=== PATIENT | male | born 1990 | race Two or more races ===

== ENCOUNTER 2023-08-24 17:46 | Emergency (ER) | payer MEDICAID, OTHER ==
[~2023-08-24] VITALS: Ht 185.4 cm; Wt 102.0 kg
[2023-08-24 20:08] VITALS: BP 144/84; PULSE 97; RESP 16; TEMP 98.7; O2SAT 99
[2023-08-24] MEDS ORDERED: IBUP-1456 PO (21:17)
[2023-08-24] MEDS ORDERED: CLIN1CAP70 PO (21:17)
[2023-08-24] MEDS ORDERED: CEPH500C PO (21:17)
[2023-08-24] MEDS: TETANUS-DIPTH-ACEL PERTUSSIS 0.5ML SYR Tdap IM ONE (21:21)
[2023-08-24] MEDS: cefTRIAXone SOD 1,000 MG VL IM ONE (21:21)
== END 2023-08-24 21:32 | disposition home or self-care (01) ==
LOC: ER 17:46
DX: L03.114 Cellulitis of left upper limb (principal); F12.10 Cannabis abuse, uncomplicated; Z90.49 Acquired absence of other specified parts of digestive tract
CPT/HCPCS: 73130; 90471; 90715; 96372; 99284; J0696

== ENCOUNTER 2024-05-05 13:42 | Emergency (ER) | payer SELFPAY ==
[~2024-05-05] VITALS: Ht 185.4 cm; Wt 106.3 kg
[~2024-05-05 13:42] MED LIST: CEPH500C PO; CLIN1CAP70 PO; IBUP-1456 PO
[2024-05-05 14:17] VITALS: BP 128/65; PULSE 88; RESP 16; TEMP 98.2; O2SAT 97
--- NOTE | 2024-05-05 14:57 | DVH ---
ULTRASOUND OF SCROTUM AND CONTENTS. INDICATION: RIGHT SIDED SWELLING COMPARISON: None TECHNIQUE: Multiple real-time grayscale sonographic and color and duplex Doppler images of the scrotu m and its contents were obtained. FINDINGS: The right testicle measures 5.0 x 4.4 x 3.8 cm. The left testicle measures 5.5 x 2.9 x 3.2 cm. Both testicles demonstrate homogeneous echotexture without evidence of focal lesions. The right epididymis measures 3.0 cm. The left epididymis measures 2.0 cm. Right epididymis is hypervascular. Subsequent color and duplex Doppler interrogation of the testes demonstrated symmetric normal vascula r flow to both testicles. No focal areas of hyperemia were seen. Moderate right hydrocele. IMPRESSION: Right epididymis is asymmetrically enlarged and hypervascular suggestive of epididymitis. Moderate right hydrocele.
--- NOTE | 2024-05-05 15:08 | ED.PDOC ---
General HPI Comments A 33 YEAR OLD MALE PRESENTS TO THE ED WITH COMPLAINT OF RIGHT TESTICLE PAIN AND SWELLING. PATIENT STATES HE HAS BEEN EXPERIENCING RIGHT-SIDED TESTICLE PAIN AND SWELLING FOR THE PAST 1 WEEK. PATIENT DENIES DYSURIA, HEMATURIA, PENILE DISCHARGE, FEVER, CHILLS, SHORTNESS OF BREATH, CHEST PAIN, ABDOMINAL PAIN, NAUSEA, VOMITING, HEADACHE, OR OTHER COMPLAINTS. NO OTHER SYMPTOMS OR MODIFYING FACTORS AT THIS TIME. PATIENT IS ALERT, ORIENTED X 4, AND HAS STEADY GAIT. Chief Complaint: Testicle Pain Time Seen by MD: 13:56 Primary Care Provider: BLACK Reviewed notes: Nurses Notes, Medications, Allergies Allergies: Coded Allergies: NO KNOWN ALLERGIES (Unverified , 08/24/23) Home Meds Active Scripts Indomethacin (Indomethacin) 50 Mg Cap, 1 CAP PO TID, #30 CAP Prov:CHARLINE LARA 05/05/24 Doxycycline (Monohydrate) (Doxycycline) 100 Mg Cap, 100 MG PO BID, #20 CAP Prov:CHARLINE LARA 05/05/24 Ibuprofen (Ibuprofen) 800 Mg Tab, 1 TAB PO TID, #30 TAB 0 Refills Prov:NEVAEH MESSER 08/24/23 Cephalexin Monohydrate (Cephalexin) 500 Mg Cap, 1 CAP PO BID for 7 Days, #14 CAP 0 Refills Prov:NEVAEH MESSER 08/24/23 Clindamycin Hcl (Clindamycin Hcl) 300 Mg Cap, 1 CAP PO TID for 7 Days, #21 CAP 0 Refills Prov:NEVAEH MESSER 08/24/23 Information Source: Patient Mode of Arrival: Ambulatory Severity: Moderate Inability to void: None Timing: Days Duration: Since onset, Days Prehospital treatment: None Onset: Spontaneous Symptoms: Other (RIGHT-SIDED TESTICLE SWELLING AND PAIN) History of: None Location: None Location male: R Scrotum Penile discharge: None Modifying factors: None associated signs and symptoms: None Past Medical History PAST MEDICAL HISTORY: Denies Surgical History: Appendectomy Family History Family History: Reviewed,noncontributory to illness Social History Smoker: Non-Smoker Alcohol: Denies ETOH Use Drugs: Marijuana Lives In: Home Constitutional: denies: chills, diaphoresis, fatigue, fever, malaise, sweats, weakness, others EENTM: denies: blurred vision, double vision, ear bleeding, ear discharge, ear drainage, ear pain, ear ringing, eye pain, eye redness, hearing loss, mouth pain, mouth swelling, nasal discharge, nose bleeding, nose congestion, nose pain, photophobia, tearing, throat pain, throat swelling, voice changes, others Respiratory: denies: cough, hemoptysis, orthopnea, SOB at rest, shortness of breath, SOB with excertion, stridor, wheezing, others Cardiovascular: denies: chest pain, dizzy spells, diaphoresis, Dyspnea on exertion, edema, irregular heart beat, left arm pain, lightheadedness, palpitations, PND, syncope, others Gastrointestinal: denies: abdomen distended, abdominal pain, blood streaked bowels, constipated, diarrhea, dysphagia, difficulty swallowing, hematemesis, melena, nausea, poor appetite, poor fluid intake, rectal bleeding, rectal pain, vomiting, others Genitourinary: reports: testicle pain, testicle swelling; denies: burning, dysuria, flank pain, frequency, hematuria, incontinence, penile discharge, penile sore, pain, urgency, others Neurological: denies: dizziness, fainting, headache, left sided numbness, left sided weakness, numbness, paresthesia, pre-existing deficit, right sided numbness, right sided weakness, seizure, speech problems, tingling, tremors, weakness, others Musculoskeletal: denies: back pain, gout, joint pain, joint swelling, muscle pain, muscle stiffness, neck pain, others Integumetry: denies: bruises, change in color, change in hair/nails, dryness, laceration, lesions, lumps, rash, wounds, others Allergic/Immunocompromised: denies: Difficulty Healing, Frequent Infections, Hives, Itching, others Hematologic/Lymphatic: denies: anemia, blood clots, easy bleeding, easy bruising, swollen glands, others Endocrine: denies: excessive hunger, excessive sweating, excessive thirst, excessive urination, flushing, intolerance to cold, intolerance to heat, unexplained weight gain, unexplained weight loss, others Psychiatric: denies: anxiety, bipolar disorder, depression, hopeless, panic di sorder, schizophrenia, sleepless, suicidal, others All Other Systems: Reviewed and Negative Physical Exam General Appearance: No Apparent Distress, Obese HEENT: Normal ENT Inspection, PERRL/EOMI, Pharynx Normal, TMs Normal Neck: Full Range of Motion, Non-Tender, Normal, Normal Inspection Respiratory: Chest Non-Tender, Lungs Clear, No Accessory Muscle Use, No Respiratory Distress, Normal Breath Sounds Cardiovascular: No Edema, No JVD, No Murmur, No Gallop, Normal Peripheral Pulses, Regular Rate/Rhythm Breast Exam: Deferred Gastrointestinal: No Organomegaly, Non Tender, No Pulsatile Mass, Normal Bowel Sounds, Soft Genitalia: Scrotum (TENDERNESS AND SWELLING ON RIGHT SCROTUM. ), Testicle (TENDERNESS AND SWELLING ON RIGHT TESTICLE, +EPIDIDYMITIS, NO TESTICLE TORSION, BILATERAL TESTICLE DESCENDING. ) Pelvic: Normal External Exam Rectal: Deferred Extremities: No calf tenderness, Normal capillary refill, Normal inspection, Normal range of motion, Non-tender, No pedal edema Musculoskeletal : Apperance: Normal Neurologic: Alert, call center manager II-XII nml as Tested, No Motor Deficits, Normal Affect, Normal Mood, No Sensory Deficits Cerebellar Function: Normal Reflexes: Normal Skin: Dry, Normal Color, Warm Peripheral Pulses: 2+ carotid (R), 2+ carotid (L) Lymphatic: No Adenopathy Was a procedure done? Was a procedure done?: No Differential Diagnosis Kidney stone (Female): N/A Kidney stone (Male): N/A Penile/Scrotal: Epidiymitis, UTI, Hydrocele, Testicular Torsion, Urolithiasis Urinary Problem (Male): N/A Urinary Problem (Female): N/A X-Ray, Labs, Meds, VS Vital Signs Date Time Temp Pulse Resp B/P (MAP) Pulse Ox O2 Delivery O2 Flow Rate FiO2 05/05/24 14:17 88 16 97 Room Air 05/05/24 14:17 98.2 88 16 128/65 (86) 97 98.2 05/05/24 13:48 98.2 88 16 128/65 (86) 97 Current Medications Medications (Trade) Dose Ordered Sig/Dafne Route Start Time Stop Time Status Last Admin Ceftriaxone Sodium (Rocephin) 1,000 mg ONCE ONCE IM 05/05/24 15:15 05/05/24 15:16 DC 05/05/24 15:09 Ibuprofen (Motrin Tablet) 800 mg ONCE ONCE PO 05/05/24 15:15 05/05/24 15:16 DC 05/05/24 15:09 ULTRASOUND OF SCROTUM AND CONTENTS. INDICATION: RIGHT SIDED SWELLING COMPARISON: None TECHNIQUE: Multiple real-time grayscale sonographic and color and duplex Doppler images of the scrotum and its contents were obtained. FINDINGS: The right testicle measures 5.0 x 4.4 x 3.8 cm. The left testicle measures 5.5 x 2.9 x 3.2 cm. Both testicles demonstrate homogeneous echotexture without evidence of focal lesions. The right epididymis measures 3.0 cm. The left epididymis measures 2.0 cm. Right epididymis is hypervascular. Subsequent color and duplex Doppler interrogation of the testes demonstrated symmetric normal vascular flow to both testicles. No focal areas of hyperemia were seen. Moderate right hydrocele. IMPRESSION: Right epididymis is asymmetrically enlarged and hypervascular suggestive of epididymitis. Moderate right hydrocele. ATED BY: CHRISTOPHE BARAJAS MD DICTATED DATE/TIME: 05/05/24 145 SIGNED BY: CHRISTOPHE BARAJAS MD SIGNED DATE/TIME: 05/05/241453 CC: X-Ray, Labs, Meds, VS Comment EXTERNAL MEDICAL RECORDS REVIEWED: [NONE] INDEPENDENT HISTORIANS: [NONE] SOCIAL DETERMINANTS OF HEALTH: [NONE] LABS ORDERED: NONE REVIEWED AND INTERPRETED RESULTS: NONE IMAGING ORDERED: US GEN/SCROTUM TREATMENTS ORDERED: ROCEPHIN 1 G IM PROCEDURES PERFORMED: NONE CRITICAL CARE TIME: NONE I HAVE DISCUSSED THE PATIENT WITH THE ATTENDING PHYSICIAN DR. JUSTIN AND HE AGREES WITH THE PATIENT'S PLAN OF CARE AND DISPOSITION. BASED ON HISTORY OF PRESENT ILLNESS, AND PHYSICAL EXAM, PATIENT WILL BE DISCHARGED HOME. DISCUSSED PLAN FOR DISCHARGE HOME WITH RX [DOXYCYCLINE AND INDOCIN]. MEDICATION WARNINGS GIVEN. SHARED DECISION MAKING: PATIENT INSTRUCTED TO FOLLOW UP WITH PRIMARY CARE PROVIDER IN 1-2 DAYS FOR RE-EVALUATION OF SYMPTOMS. PATIENT VERBALIZES UNDERSTANDING TO RETURN TO ED FOR NEW OR WORSENING SYMPTOMS OR IF FOLLOW UP WITH PCP CANNOT BE OBTAINED. PATIENT FEELS COMFORTABLE GOING HOME AT THIS TIME. ALL QUESTIONS ADDRESSED AT TIME OF DISCHARGE. Images Reviewed?: Images reviewed and evaluated by me Time of 1ST Reevaluation: 15:24 Reevaluation 1ST: Improved Patient Education/Counseling: Diagnosis, Treatment, Need For Follow Up Family Education/Counseling: Diagnosis, Treatment, Need For Follow Up Medical Screening: No EMC Exist At This Time Departure 1 Departure Time of Disposition: 15:30 Impression: Primary Impression: Acute epididymitis Additional Impression: Hydrocele, right Disposition: HOME / SELF CARE / HOMELESS Condition: Stable Additional Instructions: FOLLOW-UP WITH PCP IN 1 TO 2 DAYS. TAKE MEDICATIONS PRESCRIBED. RETURN TO ED FOR ANY NEW OR WORSENING SYMPTOMS. e-Prescriptions Indomethacin (Indomethacin) 50 Mg Cap 1 CAP PO TID, #30 CAP Prov: CHARLINE LARA 05/05/24 Doxycycline (Monohydrate) (Doxycycline) 100 Mg Cap 100 MG PO BID, #20 CAP Prov: CHARLINE LARA 05/05/24 Discharged With: Self Critical Care Note Critical Care Time?: No Stability Stability form required: No I personally scribed for CHARLINE LARA ([email or web address]) on 05/05/24 at 15:08. Electronically submitted by Mode Weir ([email or web address]). CHARLINE LARA May 05, 2024 15:08
[2024-05-05] MEDS: IBUPROFEN 800 MG TAB PO ONE (15:09)
[2024-05-05] MEDS: cefTRIAXone SOD 1,000 MG VL IM ONE (15:09)
[2024-05-05] MEDS ORDERED: INDO50CA82 PO (15:21)
[2024-05-05] MEDS ORDERED: DOXY1CAP58 PO (15:21)
[2024-05-05] MEDS: LIDOCAINE 1% HCL (LOCAL ANESTH.) INJ 20ML MDV ONE (15:22)
== END 2024-05-05 15:32 | disposition home or self-care (01) ==
LOC: ER 13:42
DX: N45.1 Epididymitis (principal); N43.3 Hydrocele, unspecified; F12.90 Cannabis use, unspecified, uncomplicated; Z79.899 Other long term (current) drug therapy; Z90.49 Acquired absence of other specified parts of digestive tract
CPT/HCPCS: 76870; 96372; 99285; J0696; J2003